=== PATIENT | female | born 1990 ===

== ENCOUNTER → 2024-09-08 22:33 | Outpatient (CLI) | payer OTHER, SELFPAY | LOC: OB 23:22 → LABOR 23:30 | PROVIDERS: Referring Provider Student in an Organized Health Care Education/Training Program; Visit Provider Student in an Organized Health Care Education/Training Program | DX: O36.8130 Decreased fetal movements, third trimester, not applicable or unspecified (principal); Z3A.32 32 weeks gestation of pregnancy | CPT/HCPCS: G0378 ==